=== PATIENT | female | born 1990 | race Hispanic/Latino ===

== ENCOUNTER 2020-11-02 08:36 | Inpatient (IN) | payer MEDICAID ==
[~2020-11-02] VITALS: Ht 152.4 cm; Wt 75.7 kg
[2020-11-03] MEDS: LACTATED RINGERS 1000ML 1,000 ML IV PRN (17:40)
[2020-11-03 17:49] LABS: APPEARANCE,URINE Clear (CLEAR); BILIRUBIN,URINE Negative (NEGATIVE); COLOR,URINE Yellow (YELLOW); GLUCOSE, URINE (UA) Negative (NEGATIVE); KETONES,URINE Negative (NEGATIVE); LEUKOCYTE ESTERASE ,URINE Small (NEGATIVE); NITRATE,URINE Negative (NEGATIVE); OCCULT BLOOD,URINE Negative (NEGATIVE); PH,URINE 7.5 (5.0-8.0); PROTEIN,URINE Negative (NEGATIVE); UROBILINOGEN,URINE 0.2 mg/dL (0.2-1.0)
[2020-11-03 18:00] LABS: HEMATOCRIT 35.3 % (36-48); MEAN CORPUSCULAR HEMOGLOBIN 29.9 pg (27.0-33.0); MEAN CORPUSCULAR HGB CONC 34.3 g/dL (32.0-36.0); MEAN CORPUSCULAR VOLUME 87.2 fL (79-99); RED BLOOD CELL COUNT(AUTO) 4.05 MIL/uL (4.00-5.50); RED CELL DISTRIBUTION WIDTH 13.8 % (11.0-15.5); WHITE BLOOD COUNT (AUTO) 7.5 K/uL (4.8-10.8)
[2020-11-03 18:30] LABS: BACTERIA,URINE Few /HPF (None Seen); RBC,URINE 0-1 /HPF (0-1); SQUAMOUS EPITHELIAL CELL,UR Few /HPF (0-2)
[2020-11-03] MEDS ORDERED: DINOPROSTONE 10 MG VAGINAL SUPP VG SCH (18:45)
[2020-11-03 19:37] LABS: AMPHET/METH SCREEN,URINE NEGATIVE (NEGATIVE); BARBITURATE SCREEN, URINE NEGATIVE (NEGATIVE); BENZODIAZEPINES SCREEN,URINE NEGATIVE (NEGATIVE); CANNABINOID SCREEN,URINE NEGATIVE (NEGATIVE); COCAINE SCREEN,URINE NEGATIVE (NEGATIVE); OPIATE SCREEN,URINE NEGATIVE (NEGATIVE); PHENCYCLIDINE SCREEN,URINE NEGATIVE (NEGATIVE)
[2020-11-04] MEDS: LACTATED RINGERS 1000ML 1,000 ML IV PRN (01:10)
[2020-11-04] MEDS ORDERED: OXYTOCIN-LR 20 UNITS/1000 ML 1,000 ML IV ONE (04:17)
[2020-11-04] MEDS ORDERED: OXYTOCIN 10 USP UNITS/ML 20 UNIT in DEXTROSE 5 %-0.45 % NACL 1,000 ML IV SCH (04:30)
[2020-11-04] MEDS ORDERED: OXYTOCIN-LR 20 UNITS/1000 ML 1,000 ML IV SCH ×2 (04:30→06:00)
[2020-11-04] MEDS ORDERED: BUTORPHANOL TARTRATE 2 MG/ML IVP ONE (05:15)
[2020-11-04] MEDS ORDERED: BUTORPHANOL TARTRATE 2 MG/ML ONE (05:17)
[2020-11-04] MEDS ORDERED: NALOXONE HCL 0.4 MG/1 ML ML IV PRN (08:45)
[2020-11-04] MEDS ORDERED: LACTATED RINGERS 500 ML 500 ML IV PRN (08:45)
[2020-11-04] MEDS ORDERED: ROPIVACAINE 0.2% 100ML VIAL 100 ML EP SCH (08:45)
[2020-11-04] MEDS ORDERED: EPHEDRINE SULFATE 50 MG/ML AMPULE IVP PRN (08:45)
[2020-11-04] MEDS ORDERED: FENTANYL CITRATE PF 50 MCG/1 ML 2ML VIAL ONE ×2 (09:02→17:41)
[2020-11-04] MEDS ORDERED: CEFAZOLIN SODIUM 1 GM VIAL IVP PRN (17:30)
[2020-11-04] MEDS ORDERED: CITRIC ACID/SODIUM CITRATE 30 ML UDCUP PO PRN (17:30)
[2020-11-04] MEDS ORDERED: LACTATED RINGERS 1000ML 1,000 ML IV SCH (17:30)
[2020-11-04] MEDS ORDERED: PHENYLEPHRINE HCL 10 MG/ML 1ML VIAL IV ONE (17:53)
[2020-11-04] MEDS ORDERED: KETAMINE HCL 100 MG/ML 5ML VIAL IJ ONE (17:54)
[2020-11-04] MEDS ORDERED: CEFAZOLIN SODIUM 1 GM VIAL IVP ONE (17:55)
[2020-11-04] MEDS ORDERED: ONDANSETRON 4MG INJ ONE (18:06)
[2020-11-04] MEDS ORDERED: MEPERIDINE-PF 50 MG/ML SYG ONE (18:15)
[2020-11-04] MEDS ORDERED: MORPHINE PF 100MG/10ML AMP IV ONE (18:24)
[2020-11-04] MEDS ORDERED: OXYTOCIN 10 UNIT/1ML 10ML VIAL ONE (18:32)
[2020-11-04] MEDS ORDERED: CALDOLOR 800MG+NS 250ML 250 ML IV ONE (18:44)
[2020-11-04] MEDS ORDERED: DEXTROSE 5 %-0.45 % NACL 1,000 ML IV PRN (19:45)
[2020-11-04] MEDS ORDERED: 0.9%NACL 10ML VIAL IVP PRN (19:45)
[2020-11-04] MEDS ORDERED: MEPERIDINE-PF 75 MG/ML SYG IM PRN (19:45)
[2020-11-04] MEDS ORDERED: PROMETHAZINE HCL 25 MG/ML 1ML AMPULE IM PRN (19:45)
[2020-11-04] MEDS ORDERED: OXYTOCIN-LR 20 UNITS/1000 ML 1,000 ML IV PRN (19:45)
[2020-11-04 20:19] VITALS: BP 105/55
[2020-11-04 20:27] VITALS: BP 120/62
[2020-11-04] MEDS ORDERED: LORATADINE 10 MG TABLET PO PRN (20:30)
[2020-11-04 23:40] VITALS: BP 112/63
[2020-11-05] MEDS: CALDOLOR 800MG+NS 250ML 250 ML IV SCH ×3 (02:34→13:00)
[2020-11-05 03:55] VITALS: BP 95/50
[2020-11-05 07:01] LABS: HEMATOCRIT 25.5 % (36-48); MEAN CORPUSCULAR HEMOGLOBIN 29.9 pg (27.0-33.0); MEAN CORPUSCULAR HGB CONC 33.7 g/dL (32.0-36.0); MEAN CORPUSCULAR VOLUME 88.5 fL (79-99); RED BLOOD CELL COUNT(AUTO) 2.88 MIL/uL (4.00-5.50); RED CELL DISTRIBUTION WIDTH 13.8 % (11.0-15.5); WHITE BLOOD COUNT (AUTO) 9.5 K/uL (4.8-10.8)
[2020-11-05 07:09] VITALS: BP 101/56
[2020-11-05 08:14] LABS: HEPATITIS Bs ANTIGEN SCREEN P Negative (Negative)
[2020-11-05] MEDS ORDERED: ACETAMINOPHEN 500 MG TABLET PO PRN (09:00)
[2020-11-05] MEDS ORDERED: BISACODYL 10 MG SUPP.RECT RC PRN (09:00)
[2020-11-05] MEDS ORDERED: DIPH,PERTUSS(ACELL),TET VAC/PF 0.5 ML VIAL IM SCH (09:00)
[2020-11-05] MEDS ORDERED: HYDROCODONE/ACETAMINOPHEN 5/325 MG TAB PO PRN (09:00)
[2020-11-05] MEDS ORDERED: DIPH,PERTUSS(ACELL),TET VAC/PF 0.5 ML VIAL IM ONE (09:00)
[2020-11-05] MEDS ORDERED: LANOLIN 30GM OINTMENT TP PRN (09:00)
[2020-11-05] MEDS: SIMETHICONE 80 MG TAB.CHEW PO PRN ×3 (09:24→20:49)
[2020-11-05] MEDS: DOCUSATE SODIUM 100 MG CAP PO SCH ×2 (09:24→20:49)
[2020-11-05] MEDS: ACETAMINOPHEN WITH CODEINE 1 TAB TAB PO PRN ×2 (09:25→18:44)
[2020-11-05 11:50] VITALS: BP 101/58
[2020-11-05 16:41] VITALS: BP 112/69
[2020-11-05] MEDS: IBUPROFEN 600 MG TABLET PO PRN (17:36)
[2020-11-05 18:27] LABS: HEMATOCRIT 27.7 % (36-48)
[2020-11-05 19:35] VITALS: BP 111/59
[2020-11-05 23:13] VITALS: BP 109/65
[2020-11-06 03:39] VITALS: BP 104/62
[2020-11-06] MEDS: ACETAMINOPHEN WITH CODEINE 1 TAB TAB PO PRN (05:33)
[2020-11-06 07:30] VITALS: BP 101/66
[2020-11-06] MEDS: DOCUSATE SODIUM 100 MG CAP PO SCH (08:56)
[2020-11-06] MEDS: SIMETHICONE 80 MG TAB.CHEW PO PRN ×2 (08:56→12:11)
[2020-11-06] MEDS: IBUPROFEN 600 MG TABLET PO PRN (09:01)
[2020-11-06 11:55] VITALS: BP 126/83
[2020-11-15] MEDS ORDERED: FLUO10CA21 PO (15:41)
[2020-11-15] MEDS ORDERED: ARIP5TAB13 PO (15:41)
== END 2020-11-06 13:40 | disposition home or self-care (01) | DRG 540 ==
LOC: EDSTATUS 16:20 → LDH 11-03 16:24 → WSH 11-05 06:15
PROVIDERS: ADMIT Obstetrics & Gynecology; ATTEND Obstetrics & Gynecology
PROC: 10907ZC Drainage of Amniotic Fluid, Therapeutic from Products of Conception, Via Natural or Artificial Opening (ICD-10-PCS; 2020-11-04)
PROC: 3E0P7VZ Introduction of Hormone into Female Reproductive, Via Natural or Artificial Opening (ICD-10-PCS; 2020-11-04)
PROC: 3E0R3BZ Introduction of Anesthetic Agent into Spinal Canal, Percutaneous Approach (ICD-10-PCS; 2020-11-04)
PROC: 00HU33Z Insertion of Infusion Device into Spinal Canal, Percutaneous Approach (ICD-10-PCS; 2020-11-04)
PROC: 10D00Z1 Extraction of Products of Conception, Low, Open Approach (ICD-10-PCS; principal; 2020-11-04 17:45)
PROC: 3E0234Z Introduction of Serum, Toxoid and Vaccine into Muscle, Percutaneous Approach (ICD-10-PCS; 2020-11-05)
DX: O62.1 Secondary uterine inertia (principal); O61.9 Failed induction of labor, unspecified; Z23 Encounter for immunization; Z37.0 Single live birth; Z3A.40 40 weeks gestation of pregnancy
CPT/HCPCS: 36415; 59510; 80305; 81001; 85014; 85018; 85027; 86592; 86850; 86900; 86901; 87340; 90715; A4314; A4344; G0378; J0595; J0690; J1741; J2175; J2274; J2370; J2405; J2550; J2590; J3010; J3490; J7120

== ENCOUNTER 2020-11-10 21:11 | Inpatient (IN) | payer MEDICAID ==
[~2020-11-10] VITALS: Ht 152.4 cm; Wt 65.9 kg
[2020-11-10 23:09] LABS: APPEARANCE,URINE Clear (CLEAR); BILIRUBIN,URINE Negative (NEGATIVE); COLOR,URINE Yellow (YELLOW); GLUCOSE, URINE (UA) Negative (NEGATIVE); KETONES,URINE 40 mg/dL (NEGATIVE); LEUKOCYTE ESTERASE ,URINE Small (NEGATIVE); NITRATE,URINE Negative (NEGATIVE); OCCULT BLOOD,URINE Large (NEGATIVE); PROTEIN,URINE Trace mg/dL (NEGATIVE); UROBILINOGEN,URINE 0.2 mg/dL (0.2-1.0)
[2020-11-10 23:19] LABS: BACTERIA,URINE Few /HPF (None Seen); MUCUS,URINE Many LPF (None Seen); SQUAMOUS EPITHELIAL CELL,UR Many /HPF (0-2)
[2020-11-11] MEDS ORDERED: LACTATED RINGERS 1000ML 1,000 ML IV ONE (01:43)
[2020-11-11 01:57] LABS: BASOPHILS % (AUTO) 0.4 % (0.0-5.0); EOSINOPHILS % (AUTO) 0.8 % (0.0-8.0); HEMATOCRIT 29.2 % (36-48); LYMPHOCYTES % (AUTO) 15.9 % (21.0-51.0); MEAN CORPUSCULAR HEMOGLOBIN 30.3 pg (27.0-33.0); MEAN CORPUSCULAR HGB CONC 33.9 g/dL (32.0-36.0); MEAN CORPUSCULAR VOLUME 89.3 fL (79-99); NEUTROPHILS % (AUTO) 73.3 % (40.0-77.0); PLATELET COUNT (AUTO) 308 K/uL (130-400); RED BLOOD CELL COUNT(AUTO) 3.27 MIL/uL (4.00-5.50); RED CELL DISTRIBUTION WIDTH 14.1 % (11.0-15.5); WHITE BLOOD COUNT (AUTO) 9.5 K/uL (4.8-10.8)
[2020-11-11 02:13] LABS: ALBUMIN 2.9 g/dL (3.5-5.0); BILIRUBIN,TOTAL 0.3 mg/dL (0.2-1.0); TOTAL PROTEIN, SERUM 7.1 g/dL (6.0-8.3)
[2020-11-11 02:31] LABS: AMPHET/METH SCREEN,URINE NEGATIVE (NEGATIVE); BARBITURATE SCREEN, URINE NEGATIVE (NEGATIVE); BENZODIAZEPINES SCREEN,URINE NEGATIVE (NEGATIVE); CANNABINOID SCREEN,URINE NEGATIVE (NEGATIVE); COCAINE SCREEN,URINE NEGATIVE (NEGATIVE); OPIATE SCREEN,URINE POSITIVE (NEGATIVE); PHENCYCLIDINE SCREEN,URINE NEGATIVE (NEGATIVE)
[2020-11-11] MEDS ORDERED: CEFTRIAXONE 2GM VIAL ONE (05:04)
[2020-11-11] MEDS ORDERED: 0.9%NACL 50ML 50 ML IV ONE (05:05)
[2020-11-11] MEDS ORDERED: THIAMINE HCL 100 MG/ML 2ML VIAL ONE (06:45)
[2020-11-11] MEDS ORDERED: 0.9%NACL 100ML 100 ML IV ONE (06:51)
[2020-11-11] MEDS ORDERED: ACETAMINOPHEN 325 MG TAB PO PRN (08:00)
[2020-11-11] MEDS ORDERED: ONDANSETRON 4MG INJ IVP PRN (08:00)
[2020-11-11] MEDS ORDERED: GADOTERATE MEGLUMINE 5 MMOL/10 ML VIAL IV ONE (09:10)
[2020-11-11] MEDS ORDERED: LORAZEPAM 2 MG/ML 1 ML VIAL ONE (13:22)
[2020-11-11] MEDS: ZIPRASIDONE MESYLATE 20 MG/VIAL IM SCH (13:30)
[2020-11-11 16:53] VITALS: BP 130/78
[2020-11-11] MEDS: FAMOTIDINE 20MG TAB PO SCH ×2 (20:13→21:00)
[2020-11-11] MEDS: THIAMINE HCL 100 MG/ML 2ML VIAL IV SCH (20:13)
[2020-11-11 20:18] VITALS: BP 126/79
[2020-11-11 22:40] VITALS: BP 115/67
[2020-11-12 04:56] VITALS: BP 112/70
[2020-11-12 05:48] LABS: BASOPHILS % (AUTO) 0.3 % (0.0-5.0); EOSINOPHILS % (AUTO) 2.3 % (0.0-8.0); HEMATOCRIT 28.2 % (36-48); LYMPHOCYTES % (AUTO) 20.8 % (21.0-51.0); MEAN CORPUSCULAR HEMOGLOBIN 29.9 pg (27.0-33.0); MEAN CORPUSCULAR HGB CONC 33.7 g/dL (32.0-36.0); MEAN CORPUSCULAR VOLUME 88.7 fL (79-99); MONOCYTES % (AUTO) 10.1 % (3.0-13.0); NEUTROPHILS % (AUTO) 65.3 % (40.0-77.0); PLATELET COUNT (AUTO) 301 K/uL (130-400); RED BLOOD CELL COUNT(AUTO) 3.18 MIL/uL (4.00-5.50); RED CELL DISTRIBUTION WIDTH 13.9 % (11.0-15.5); WHITE BLOOD COUNT (AUTO) 8.8 K/uL (4.8-10.8)
[2020-11-12 06:19] LABS: CREATININE 0.9 mg/dL (0.5-1.5)
[2020-11-12 08:00] VITALS: BP 118/80
[2020-11-12] MEDS: FAMOTIDINE 20MG TAB PO SCH ×2 (09:02→20:57)
[2020-11-12] MEDS: LORAZEPAM 2 MG/ML 1 ML VIAL IM PRN (10:45)
[2020-11-12 12:00] VITALS: BP 117/70
[2020-11-12] MEDS: ZIPRASIDONE MESYLATE 20 MG/VIAL IM SCH (13:30)
[2020-11-12] MEDS ORDERED: LORAZEPAM 2 MG/ML 1 ML VIAL IM ONE (13:45)
[2020-11-12 20:29] VITALS: BP 127/84
[2020-11-12] MEDS: THIAMINE HCL 100 MG/ML 2ML VIAL IV SCH (20:57)
[2020-11-12 23:08] VITALS: BP 128/86
[2020-11-13] MEDS: LORAZEPAM 2 MG/ML 1 ML VIAL IM PRN (00:39)
[2020-11-13 03:00] VITALS: BP 120/60
[2020-11-13 07:07] VITALS: BP 132/89
[2020-11-13] MEDS: FAMOTIDINE 20MG TAB PO SCH ×2 (09:15→19:56)
[2020-11-13 10:54] VITALS: BP 149/98
[2020-11-13] MEDS: ZIPRASIDONE MESYLATE 20 MG/VIAL IM SCH (12:40)
[2020-11-13 15:54] VITALS: BP 131/74
[2020-11-13] MEDS: TRAZODONE HCL 50 MG TAB PO PRN (19:56)
[2020-11-13] MEDS: THIAMINE HCL 100 MG/ML 2ML VIAL IV SCH (19:56)
[2020-11-13 20:15] VITALS: BP 133/87
[2020-11-13 23:34] VITALS: BP 122/78
[2020-11-14 04:11] VITALS: BP 121/69
[2020-11-14 04:55] LABS: BASOPHILS % (AUTO) 0.3 % (0.0-5.0); EOSINOPHILS % (AUTO) 2.9 % (0.0-8.0); HEMATOCRIT 29.5 % (36-48); LYMPHOCYTES % (AUTO) 23.5 % (21.0-51.0); MEAN CORPUSCULAR HEMOGLOBIN 29.5 pg (27.0-33.0); MEAN CORPUSCULAR HGB CONC 33.9 g/dL (32.0-36.0); MONOCYTES % (AUTO) 7.1 % (3.0-13.0); NEUTROPHILS % (AUTO) 65.4 % (40.0-77.0); PLATELET COUNT (AUTO) 385 K/uL (130-400); RED BLOOD CELL COUNT(AUTO) 3.39 MIL/uL (4.00-5.50); RED CELL DISTRIBUTION WIDTH 13.6 % (11.0-15.5); WHITE BLOOD COUNT (AUTO) 6.6 K/uL (4.8-10.8)
[2020-11-14 05:02] LABS: CREATININE 0.9 mg/dL (0.5-1.5); CRP QUANTITATIVE 37.3 mg/L (0.00-9.0); MAGNESIUM 2.1 mg/dL (1.80-2.40); POTASSIUM 3.6 mmol/L (3.5-5.1)
[2020-11-14 07:01] LABS: ERYTHROCYTE SEDIMENTATION RATE 45 MM/HR (0-20)
[2020-11-14 07:30] VITALS: BP 119/77
[2020-11-14] MEDS: FAMOTIDINE 20MG TAB PO SCH ×2 (07:41→20:18)
[2020-11-14] MEDS: THIAMINE HCL 100 MG TABLET PO SCH (07:41)
[2020-11-14] MEDS ORDERED: LURA40TA PO (09:30)
[2020-11-14] MEDS ORDERED: OLAN10TA3 PO (09:30)
[2020-11-14] MEDS ORDERED: FLUOXETINE HCL 10 MG CAPSULE PO SCH (16:00)
[2020-11-14] MEDS ORDERED: ARIPIPRAZOLE 5 MG TABLET PO SCH (16:00)
[2020-11-14 20:04] VITALS: BP 129/76
[2020-11-14] MEDS: TRAZODONE HCL 50 MG TAB PO PRN (20:18)
[2020-11-14 23:53] VITALS: BP 124/83
[2020-11-15] MEDS: LORAZEPAM 2 MG/ML 1 ML VIAL IM PRN (00:23)
[2020-11-15 04:05] VITALS: BP 147/87
[2020-11-15 05:13] LABS: BASOPHILS % (AUTO) 0.5 % (0.0-5.0); EOSINOPHILS % (AUTO) 1.4 % (0.0-8.0); HEMATOCRIT 32.2 % (36-48); LYMPHOCYTES % (AUTO) 23.9 % (21.0-51.0); MEAN CORPUSCULAR HEMOGLOBIN 29.5 pg (27.0-33.0); MEAN CORPUSCULAR HGB CONC 33.9 g/dL (32.0-36.0); MONOCYTES % (AUTO) 6.1 % (3.0-13.0); NEUTROPHILS % (AUTO) 67.5 % (40.0-77.0); PLATELET COUNT (AUTO) 411 K/uL (130-400); RED CELL DISTRIBUTION WIDTH 13.6 % (11.0-15.5); WHITE BLOOD COUNT (AUTO) 7.7 K/uL (4.8-10.8)
[2020-11-15 05:24] LABS: POTASSIUM 3.8 mmol/L (3.5-5.1)
[2020-11-15 08:10] VITALS: BP 126/89
[2020-11-15] MEDS: THIAMINE HCL 100 MG TABLET PO SCH (08:28)
[2020-11-15] MEDS: FAMOTIDINE 20MG TAB PO SCH (08:28)
[2020-11-15] MEDS ORDERED: ARIPIPRAZOLE 5 MG TABLET PO SCH (09:00)
[2020-11-15] MEDS ORDERED: FLUOXETINE HCL 10 MG CAPSULE PO SCH (09:00)
[2020-11-15 11:00] VITALS: BP 129/83
[2020-11-15] MEDS ORDERED: ARIP5TAB13 PO ×2 (15:41)
[2020-11-15] MEDS ORDERED: FLUO10CA21 PO ×2 (15:41)
== END 2020-11-15 17:30 | disposition home or self-care (01) | DRG 561 ==
LOC: EDH 21:11 → EDHIP 21:12 → OBSVTOIN 21:12 → 3BH 11-11 16:35
PROVIDERS: ADMIT Hospitalist; ATTEND Hospitalist
DX: O99.345 Other mental disorders complicating the puerperium (principal); F53.1 Puerperal psychosis; F53.0 Postpartum depression; F41.1 Generalized anxiety disorder; F31.9 Bipolar disorder, unspecified; O16.5 Unspecified maternal hypertension, complicating the puerperium; O90.89 Other complications of the puerperium, not elsewhere classified; R00.0 Tachycardia, unspecified; G47.00 Insomnia, unspecified; Z98.891 History of uterine scar from previous surgery; Z80.8 Family history of malignant neoplasm of other organs or systems; Z91.14 Patient's other noncompliance with medication regimen
CPT/HCPCS: 36415; 70450; 70544; 70553; 80048; 80053; 80305; 81001; 82140; 82607; 83605; 83735; 84100; 84145; 84443; 84484; 85025; 85651; 86140; 86592; 87040; G0378; J0696; J2060; J3411; J3486; J7120

== ENCOUNTER 2020-11-16 12:28 | Emergency (ER) | payer MEDICAID ==
[~2020-11-16 12:28] MED LIST: ARIP5TAB13 PO; FLUO10CA21 PO
[2020-11-16 14:23] LABS: BASOPHILS % (AUTO) 0.2 % (0.0-5.0); EOSINOPHILS % (AUTO) 0.5 % (0.0-8.0); HEMATOCRIT 35.5 % (36-48); LYMPHOCYTES % (AUTO) 8.9 % (21.0-51.0); MEAN CORPUSCULAR HEMOGLOBIN 29.1 pg (27.0-33.0); MEAN CORPUSCULAR VOLUME 88.3 fL (79-99); MONOCYTES % (AUTO) 4.6 % (3.0-13.0); NEUTROPHILS % (AUTO) 85.2 % (40.0-77.0); PLATELET COUNT (AUTO) 498 K/uL (130-400); RED BLOOD CELL COUNT(AUTO) 4.02 MIL/uL (4.00-5.50); RED CELL DISTRIBUTION WIDTH 13.6 % (11.0-15.5); WHITE BLOOD COUNT (AUTO) 12.8 K/uL (4.8-10.8)
[2020-11-16 14:40] LABS: CARBON DIOXIDE 23 mmol/L (21-32); CREATININE 1.2 mg/dL (0.5-1.5); GLOMERULAR FILTR. RATE CALC 55 mL/min (>60); GLUCOSE,RANDOM 98 mg/dL (70-105); POTASSIUM 3.6 mmol/L (3.5-5.1); SODIUM SERUM 142 mmol/L (136-145); UREA NITROGEN, BLOOD 24 mg/dL (7-18)
[2020-11-16 14:45] LABS: ALANINE AMINOTRANSFERASE 32 U/L (12-78); ALBUMIN 3.6 g/dL (3.5-5.0); ALCOHOL, BLOOD 7 mg/dL (0-10); ASPARTATE AMINOTRANSFERASE 25 U/L (10-37); BILIRUBIN,TOTAL 0.3 mg/dL (0.2-1.0); TOTAL PROTEIN, SERUM 8.5 g/dL (6.0-8.3)
[2020-11-16 14:46] LABS: ACETAMINOPHEN < 1 mcg/mL (10-30); SALICYLATE < 2.8 mg/dL (2.8-20.0)
[2020-11-16 14:49] LABS: CHLORIDE 105 mmol/L (101-111)
[2020-11-16 16:32] LABS: APPEARANCE,URINE Clear (CLEAR); BILIRUBIN,URINE Negative (NEGATIVE); COLOR,URINE Yellow (YELLOW); GLUCOSE, URINE (UA) Negative (NEGATIVE); KETONES,URINE 15 mg/dL (NEGATIVE); LEUKOCYTE ESTERASE ,URINE Large (NEGATIVE); NITRATE,URINE Negative (NEGATIVE); OCCULT BLOOD,URINE Large (NEGATIVE); PROTEIN,URINE POS 1+ mg/dL (NEGATIVE)
[2020-11-16 16:35] LABS: HCG,QUAL RESULT NEGATIVE (NEGATIVE)
[2020-11-16 16:41] LABS: AMPHET/METH SCREEN,URINE NEGATIVE (NEGATIVE); BARBITURATE SCREEN, URINE NEGATIVE (NEGATIVE); BENZODIAZEPINES SCREEN,URINE NEGATIVE (NEGATIVE); CANNABINOID SCREEN,URINE NEGATIVE (NEGATIVE); COCAINE SCREEN,URINE NEGATIVE (NEGATIVE); OPIATE SCREEN,URINE NEGATIVE (NEGATIVE); PHENCYCLIDINE SCREEN,URINE NEGATIVE (NEGATIVE)
[2020-11-16 16:44] LABS: BACTERIA,URINE Few /HPF (None Seen); RBC,URINE 0-1 /HPF (0-1)
[2020-11-16 16:45] LABS: MUCUS,URINE Moderate LPF (None Seen); SQUAMOUS EPITHELIAL CELL,UR Few /HPF (0-2)
[2020-11-16] MEDS ORDERED: CEPHALEXIN 500 MG CAPSULE ONE (17:22)
== END 2020-11-16 17:38 | disposition home or self-care (01) ==
LOC: EDH 12:28
DX: O86.20 Urinary tract infection following delivery, unspecified (principal); O99.345 Other mental disorders complicating the puerperium; F20.9 Schizophrenia, unspecified; F31.9 Bipolar disorder, unspecified; F41.9 Anxiety disorder, unspecified; Z98.890 Other specified postprocedural states
CPT/HCPCS: 36415; 80053; 80305; 81001; 81025; 85025; 87088; 99283; G0481